=== PATIENT | male | born 1945 | race Caucasian/White ===

== ENCOUNTER 2022-01-02 10:39 | Emergency (ER) | payer MEDICARE ==
[~2022-01-02] VITALS: Ht 175.3 cm; Wt 99.8 kg
[2022-01-02 13:02] VITALS: BP 175/77
--- NOTE | 2022-01-02 13:47 | DIREP ---
PROCEDURE:XRAY FOOT MIN 3 VWS-LT COMPARISON:None. INDICATIONS:pain FINDINGS: BONES:Small calcaneal plantar enthesophyte. No fracture. JOINTS:Normal. SOFT TISSUES:Normal. OTHER:No additional findings. CONCLUSION:No acute bony abnormality. Dictated by: Jd Mcclellan M.D. on 01/02/2022 at 01:42 PM
--- NOTE | 2022-01-02 15:30 | ER.PDOC ---
General Chief Complaint: Extremities Stated Complaint: LEFT FOOT INJURY Time seen by MD: 13:30 Source: patient Exam Limitations: no limitations History of Present Illness Initial Comments Patient is a 76-year-old male with a past medical history of a pacemaker some cardiac stents and diabetes who comes in 3 weeks afterA leftfoot injury for follow-up appointment. Patient states about 3 weeks ago he fell and broke the top part of his foot and been wearing a boot ever since then. Patient states that when that accident happened he had sharp pain that was nonradiating at the dorsal aspect of his foot made worse with movement palpation better with rest. Patient says that he was told he had a fracture at the top of his foot and was put in a boot. Patient states he has not seen any follow-up appointment since then as he is from [place] and after his doctor is. Patient states that he still has some mild foot pain that he would rated as all the way up to an 8 occasionally right now up to 4 states that it is sore in nature made worse with weightbearing and better at rest.Patient states that he is here because he was told he needed to get a follow-up x-ray. Patient has associated symptoms of mild swelling to the left top of the foot. But otherwise has no other complaints. Allergies: Coded Allergies: No Known Allergies (Unverified , 01/02/22) Past Medical History Medical History: arrhythmia, coronary artery disease, diabetes, GERD, high cholesterol, hypertension Surgical History: cardiac cath, angioplasty, coronary bypass surgery, pa madhav/ALISSA Family History Significant Family History: no pertinent family hx Social History Smoking: non-smoker Alcohol Use: none Drug Use: none Reviewed Nursing Reviewed: Vital Signs, Abn. Noted, Nursing Assessment Review of Systems Constitutional: denies no symptoms reported, denies see HPI, denies chills, denies diaphoresis, denies fever, denies malaise, denies weakness, denies other EENTM: denies no symptoms reported, denies see HPI, denies eye pain, denies blurred vision, denies tearing, denies double vision, denies ear pain, denies ear discharge, denies nose pain, denies nose congestion, denies throat pain, denies throat swelling, denies mouth pain, denies mouth swelling, denies other Respiratory: denies no symptoms reported, denies see HPI, denies cough, denies orthopnea, denies shortness of breath, denies stridor, denies wheezing, denies other Cardiovascular: denies no symptoms reported, denies see HPI, denies chest pain, denies edema, denies palpitations, denies syncope, denies other Gastrointestinal: denies no symptoms reported, denies see HPI, denies abdominal pain, denies constipation, denies diarrhea, denies nausea, denies vomiting, denies other Genitourinary: denies no symptoms reported, denies see HPI, denies discharge, denies dysuria, denies frequency, denies hematuria, denies pain, denies other Musculoskeletal: joint swelling, muscle pain Skin: denies no symptoms reported, denies see HPI, denies change in color, denies change in hair/nails, denies dryness, denies lesions, denies lumps, denies rash, denies other Psychiatric/Neurological: denies no symptoms reported, denies see HPI, denies anxiety, denies depressed, denies emotional problems, denies headache, denies numbness, denies paresthesia, denies pre-existing deficit, denies seizure, denies tingling, denies tremors, denies weakness, denies other Physical Exam General Appearance: Alert, No Apparent Distress Foot: tenderness, swelling (To the dorsal aspect of the left foot) Ankle: nml inspection, non-tender, nml ROM, no joint swelling, skin intact Gait: limited by pain Neuro: sensation nml, motor nml Vascular: no vascular compromise Tendons: tendon function nml Leg/Knee/Thigh: uninjured above ankle Skin: warm/dry Head/ENT: nml inspection, pharynx nml Neck/Back: nml inspection, non-tender Resp/CVS: no resp distress Abdomen: non-tender, no organomegaly Results/Orders Results/Orders Orders - DARYL ALARCON MD Xr Foot Lt (01/02/22 13:15) Vital Signs Date Time Temp Pulse Resp B/P (MAP) Pulse Ox O2 Delivery O2 Flow Rate FiO2 01/02/22 13:02 98.8 99 18 175/77 (109) 99 Room Air* 0 21 01/02/22 13:02 98.8 99 18 01/02/22 13:02 98.0 100 18 99 Progress Progress Patient here for a follow-up appointment of left foot fracture. Will obtain x- rays and provide pain control if patient so wishes. No other need for further w ork-up at this time. 1529patient states that he is doing all right on pain does not wish for any pain medicine at this time x-ray shows no bony abnormalities discussed the patient could still have some soft tissue injury and to continue wearing his boot until he can follow-up with an orthopedic surgeon he voiced understanding of when to follow-up and when to return to the ER ER DEPART Departure Time of Disposition: 15:29 Disposition: 01 HOME / SELF CARE / HOMELESS Impression: Primary Impression: Foot pain, left Condition: Improved Patient Instructions: Foot Contusion, [id number] Referrals: PCP,UNKNOWN (PCP) PRIMARY CARE PROVIDER Additional Instructions: Please follow-up with your primary care provider within the next week. You should also see an orthopedic surgeon within the next week. Especially if the symptoms do not get any better you can contact Dr. Cruz at [phone] if you feel that this is necessary or if your primary care provider feels this is necessary. If you have any new persistent or worsening symptoms or concerns please seek emergent medical attention. Duration or Time Spent with Pa: 30 DARYL ALARCON MD Jan 02, 2022 15:30
[2022-01-02 15:34] VITALS: BP 143/74
== END 2022-01-02 15:34 | disposition home or self-care (01) ==
LOC: ER 10:39
DX: M79.672 Pain in left foot (principal); E11.9 Type 2 diabetes mellitus without complications; E78.00 Pure hypercholesterolemia, unspecified; I10 Essential (primary) hypertension; I25.10 Atherosclerotic heart disease of native coronary artery without angina pectoris; K21.9 Gastro-esophageal reflux disease without esophagitis; Z95.0 Presence of cardiac pacemaker; Z95.1 Presence of aortocoronary bypass graft; Z95.5 Presence of coronary angioplasty implant and graft
CPT/HCPCS: 99283; 73630-LT